=== PATIENT | female | born 1945 | race Caucasian/White ===

== ENCOUNTER → 2017-10-25 09:40 | Outpatient (POV) | payer MEDICARE, BC, SELFPAY | PROVIDERS: Visit Provider Otolaryngology | DX: Z00.00 Encounter for general adult medical examination without abnormal findings (principal) ==

== ENCOUNTER → 2018-12-12 09:42 | Outpatient (CLI) | payer MEDICARE, SELFPAY ==
--- NOTE | 2018-12-12 09:47 | MM_ITS ---
MM Dig screening mamm BI w/CAD CAD Screening COMPARISON: Digital mammograms with CAD 04/08/2015 INDICATION: There is no personal or family history of breast cancer there has been a previous cyst aspiration left breast. TECHNIQUE: Standard CC and MLO images were obtained. R2 CAD reviewed. FINDINGS: Prominent diffuse fibroglandular densities are seen throughout both breast and the findings are bilateral and symmetrical. There is no new or suspicious lesion in either breast and there are no suspicious microcalcifications. There are stable small nodes in both axilla. IMPRESSION: Moderate diffuse breast density with no suspicious lesion seen BI-RADS Category: 1 Negative RECOMMENDED FOLLOW-UP: 1YR - 1 YEAR FOLLOW-UP (A letter has been sent to the patient regarding results of the study.)
== END ==
PROVIDERS: PCP Family Medicine; Visit Provider Nurse Practitioner Family
DX: Z12.31 Encounter for screening mammogram for malignant neoplasm of breast (principal)
CPT/HCPCS: 77067

== ENCOUNTER → 2019-04-17 09:07 | Outpatient (CLI) | payer MEDICARE, SELFPAY ==
[2019-04-17 09:46] LABS: Lactic Acid 0.8 mmol/L (0.4-2.0)
[2019-04-17 10:30] LABS: Alanine Aminotransferase 35 U/L (12-78); Albumin Level 3.8 gm/dL (3.4-5.0); Albumin/Globulin Ratio 1.2 (1.1-1.8); Alkaline Phosphatase 107 U/L (46-116); Anion Gap 10.8 mEq/L (5-15); Aspartate Amino Transferase 25 U/L (15-37); Bilirubin,Total 0.5 mg/dL (0.2-1.0); Blood Urea Nitrogen 16 mg/dL (7-18); Calcium 9.4 mg/dL (8.5-10.1); Carbon Dioxide 32 mmol/L (21.0-32.0); Chloride 103 mmol/L (98-107); Creatinine,Serum 0.86 mg/dL (0.55-1.02); Estimated Glomerular Filt Rate 65 ml/min (>60); GFR (African American) 78 ML/MIN (>60); Globulin 3.2 gm/dl (1.3-3.2); Glucose 130 mg/dL (74-106); Potassium 3.8 mmoL/L (3.5-5.1); Sodium 142 mmol/L (136-145); Troponin I < 0.02 ng/ml (0.00-0.06)
[2019-04-17 10:56] LABS: C-Reactive Protein < 0.2 mg/dL (0.0-0.9)
[2019-04-17 12:47] LABS: Hemoglobin A1C 6.3 % (0.0-7.0)
== END ==
PROVIDERS: Visit Provider Nurse Practitioner Family
DX: E11.9 Type 2 diabetes mellitus without complications (principal); Z79.84 Long term (current) use of oral hypoglycemic drugs; R07.89 Other chest pain; T38.3X5A Adverse effect of insulin and oral hypoglycemic [antidiabetic] drugs, initial encounter
CPT/HCPCS: 36415; 80053; 83036; 83605; 84484; 86140

== ENCOUNTER → 2020-03-19 11:35 | Outpatient (CLI) | payer MEDICARE, SELFPAY ==
--- NOTE | 2020-03-19 11:39 | XR_ITS ---
PROCEDURE: XR CHEST 2V CLINICAL HISTORY: COUGH COMPARISON: No exams were available for comparison FINDINGS: The cardiomediastinal silhouette and pulmonary vascularity are within normal limits. The lungs are clear without infiltrates, suspicious nodules, or pleural effusions. No acute bony abnormalities. IMPRESSION: No acute findings. Dictated b Giovani Foley MD 03/19/2020 13:41 Giovani Foley MD in [place] 03/19/2020 13:41
== END ==
PROVIDERS: PCP Nurse Practitioner Family; Visit Provider Nurse Practitioner Family
DX: R05 Cough (principal)
CPT/HCPCS: 71046

== ENCOUNTER → 2021-06-02 09:17 | Outpatient (CLI) | payer MEDICARE, SELFPAY ==
--- NOTE | 2021-06-02 09:20 | CA_ITS ---
APPROVED REPORT High [employer] Teacher: Jania Whyte RVT Laterality: Bilateral Study Quality: Good Indications: DIZZINESS Risk Factors Hypertension: Hyperlipidemia Doppler Spectral Velocity Analysis ECA (R) 100.50/9.60 cm/s ECA (L) 95.20/6.40 cm/s dICA (R) 121.90/24.60 cm/s dICA (L) 80.20/22.50 cm/s Elijah (R) 115.50/25.70 cm/s Elijah (L) 77.00/19.20 cm/s pICA (R) 75.90/18.20 cm/s pICA (L) 74.90/11.80 cm/s dCCA (R) 75.90/8.60 cm/s dCCA (L) 82.30/11.80 cm/s pCCA (R) 87.70/11.80 cm/s pCCA (L) 100.50/15.00 cm/s Vert (R) 44.90/9.60 cm/s Vert (L) 63.10/8.60 cm/s ICA/CCA 1.61 ICA/CCA 0.97 Findings Study suggests less than 20% stenosis of the right internal cartoid artery. Study suggests less than 20% stenosis of the left internal cartoid artery. Antegrade flow seen bilateral vertebral arteries. Left thyroid nodule seen. Conclusion Study suggests less than 20% stenosis of the right internal cartoid artery. Study suggests less than 20% stenosis of the left internal cartoid artery. Antegrade flow seen bilateral vertebral arteries. No plaque visualized. Electronically signed by : Jossie Ness MD 06/02/2021 16:12:35
== END ==
PROVIDERS: PCP Nurse Practitioner Family; Visit Provider Nurse Practitioner Family
DX: R42 Dizziness and giddiness (principal)
CPT/HCPCS: 93880

== ENCOUNTER → 2021-06-12 06:18 | Outpatient (CLI) | payer MEDICARE, SELFPAY ==
--- NOTE | 2021-06-12 | CA_ITS ---
APPROVED REPORT Exam: Exercise Treadmill Technologist: Olya Jamison, Ht: 5 ft 3 in Wt: 179 lbs BSA: 1.84 m2 HR: 70 bpm BP: 188/86 mmHg Medical History Medications: Metoprolol Tartrate,,,,, Atorvastatin,,,,, Norvasc,,,,, Losartan-HCTZ,,,,, Stress Test Details Test: Matt HR Resting HR: 75 bpm Max Heart Rate (APMHR): 146.109312 bpm Max HR Achieved: 128 bpm Target HR (85% APMHR): 124.915060 bpm % of APMHR: 87.67 Recovery HR: 86 bpm BP Resting BP: 178/76 mmHg Max BP: 202/98 mmHg Recovery BP: 190.0/75.0 mmHg ECG Resting ECG: NSR, PRWP Anteriorly/old Ant HI Clinical Reason for Termination: Dyspnea Exercise duration: 06:00 min Highest Stage Achieved: Exercise capacity: 7.0 METs Stress ECG Conclusion Exercised 6:00 Minutes Max HR: 128 % of PM: 102 Max BP: 202/98 MET's: 7.0 Test stopped due to: SOA Symptoms: no CP. (+) SOA Arrhythmias/Ectopy: None in stress. PVC Bigeminy in early recovery ST-T Changes: <1.5mm ST Segment changes Conclusion: Negative stress. Electronically signed by : London Bundy MD 06/12/2021 13:16:13
--- NOTE | 2021-06-12 06:19 | CA_ITS ---
APPROVED REPORT EXAM: Comprehensive 2D, Doppler, and color-flow Echocardiogram Signing Agent: Selina Lam RT(R) Ht: 5 ft 3 in Wt: 179lbs BSA: 1.84 BP: 158/88 mmHg Indications: CP, HTN, SOB, family history HD, Abn EKG 2D Dimensions LVOT 1.78 cm (M/F) 1.5-2.5 LA Volume 16.40 mL LA Volume Index 8.91 mL/m2 (M/F) 16-34 M-Mode Dimensions RVDd 2.70 cm (0.9-2.6) LA Diam 2.91 cm (1.9-4.0) LVDd 4.67 cm (3.5-5.7) Ao Diam 2.54 cm (2.0-3.7) LVDs 3.34 cm (3.5-5.7) IVSd 0.93 cm (0.6-1.1) PWd 0.97 cm (0.6-1.1) EF (Teich) 55.00% FS 28.50% EDV (Teich) 100.80 mL ESV (Teich) 45.40 mL LV Diastology E Decel Time 220.00 (160-240 msec) E/A Ratio 0.7 MED E' 6.20 (< 7 cm/sec) E'/MED E' Ratio 12.11 (>14) LAT E' 6.30 (<10 cm/sec) E/LAT E' Ratio 11.92 (>14) Mitral Valve MV E Max Nayan. 75.00 (40-130 cm/s) MV A Velocity 112.00 (40-130 cm/s) E/A Ratio 0.67 MV Decel. Time 220.00 (160-240 ms) MV PHT 64.00 ms Left Ventricle Left atrium is mildly enlarged, left ventricle is normal size, mild concentric left ventricular hypertrophy, visually estimated ejection fraction 55% with no regional wall motion abnormality, grade 1 diastolic dysfunction seen without tissue Doppler evidence of raise left atrial pressure. Right Ventricle Right atrium and right ventricle are normal size and contractility. Aortic Valve Aortic valve is minimally thickened and fibrosed, there is no aortic stenosis or aortic insufficiency. Mitral Valve Mitral valve leaflets are minimally thickened, there is no mitral stenosis, there is trace mitral regurgitation. Tricuspid Valve Tricuspid valve grossly normal, there is trace tricuspid regurgitation, tricuspid regurgitation jet velocity is inadequate for calculation of the right ventricular systolic pressure. Pulmonic Valve Pulmonic valve is poorly visualized. Great Vessels Aortic root is normal size. Inferior vena cava is normal size with normal inspiratory collapse. Pericardium Trivial pericardial effusion noted. Conclusion 1. Mildly enlarged left atrium, normal left ventricular size, visually estimated ejection fraction 55% with no regional wall motion abnormality, grade 1 diastolic dysfunction seen without tissue Doppler evidence of raise left atrial pressure. 2. Trace mitral and tricuspid regurgitation. 3. Trivial pericardial effusion noted. 4. Inferior vena cava is normal size with normal inspiratory collapse. Electronically signed by : London Bundy MD 06/12/2021 13:56:50
--- NOTE | 2021-06-12 06:19 | NM_ITS ---
APPROVED REPORT Exam: Nuclear Stress Test Indication: Chest pain, SOB, Fatigue, HTN, High cholesterol, Family history Patient Location: Outpatient Stress Tech: Olya Jamison [place] Tech:Elizabeth Meredith, ARRT, RT (R)(N) Ht: 5 ft 3 in Wt: 178 lbs Bra Size: 38D HR: 70 bpm BP: 188/86 mmHg BSA: 1.84 m2 BMI: 31.5 History: Chest pain, SOB, Fatigue, HTN, High cholesterol, Family history Procedure: Patient exercised on Matt protocol 6:00 minutes and sec, resting heart rate 70 bpm, resting blood pressure 188/86 mmHg, with exercise maximum heart rate achived was 128 bpm which is 102 % of the maximum predicted heart rate and blood pressure was 202/98 mmHg. Test was stopped due to SOA. Patient denied any complaint of chest pain. Patient has Adequate exercise capacity, achieved 7.0 METs of workload on treadmill, the blood pressure response to exercise was Hypertensive. Electrocardiogram Resting electrocardiogram shows sinus rhythm, with exercise there is less than 1.[address] segment depression noted from the baseline EKG. The EKG portion of the exercise Myoview is negative for ischemia. Cardiac Stress and Resting SPECT Images: Cardiac Stress and Resting SPECT images were obtained using technetium 99m Myoview 31.3 mCi stress and 10.98 mCi at rest. Gated SPECT for analysis of segmental wall motion, and calculation of the ejection fraction also done. Prone images were also obtained. Cardiac stress and resting SPECT images show reversible ischemia involving the anterior apical and anteroseptal wall, computer derived ejection fraction is over 65% with no regional wall motion abnormality, right ventricle is normal size and contractility. Conclusion: 1. The EKG portion of the exercise Myoview is negative for ischemia, patient has adequate exercise capacity achieved 7 METS of workload on treadmill, the blood pressure response to exercise was hypertensive, there was no exercise-induced chest discomfort. 2. Scintigraphic evidence of reversible ischemia involving the anterior apical and anteroseptal wall, computer derived ejection fraction was 65% with no regional wall motion abnormality, right ventricle is normal size and contractility. 3. Abnormal exercise Myoview study. Electronically signed by : London Bundy MD 06/12/2021 13:19:19
--- NOTE | 2021-06-12 08:29 | HMH.ITSHM ---
Current Home Medications as stated by this patient Sona Fraser or help desk representative. []METOPROLOL ATORVASTATIN AMLODIPINE LOSARTAN
== END ==
PROVIDERS: PCP Nurse Practitioner Family; Visit Provider Nurse Practitioner Family
DX: R06.00 Dyspnea, unspecified (principal)
CPT/HCPCS: 78452; 93017; 93306; A9502

== ENCOUNTER → 2021-06-19 11:51 | Outpatient (CLI) | payer MEDICARE, SELFPAY ==
[2021-06-19 12:18] LABS: Basophils # 0.1 K/mm3 (0-0.2); Basophils % 1.3 % (0.1-2.0); Eosinophils % 0.1 % (0.1-12.0); Hematocrit 41.3 % (37.0-47.0); Hemoglobin 14.4 g/dL (12.2-16.2); Lymphocytes # 1.6 K/mm3 (0.7-4.5); Lymphocytes % 29.7 % (10-50); Mean Corpuscular HGB Conc 34.9 g/dL (31.8-35.4); Mean Corpuscular Hemoglobin 32.3 pg (27.0-31.2); Mean Corpuscular Volume 92.7 fl (81-99); Mean Platelet Volume 8.8 fl (7.4-10.4); Monocytes # 0.5 K/mm3 (0.1-1.0); Monocytes % 8.5 % (1.7-9.3); Neutrophils # 3.3 K/mm3 (1.8-7.8); Neutrophils % 60.3 % (37.0-80.0); Platelet Count 249 K/mm3 (142-424); Red Blood Count 4.46 M/mm3 (4.20-5.40); Red Cell Distribution Width 12.5 % (11.5-17.5); White Blood Count 5.4 K/mm3 (4.8-10.8)
[2021-06-19 12:39] LABS: Anion Gap 10.9 mEq/L (5-15); Blood Urea Nitrogen 16 mg/dl (7-17); Calcium 9.2 mg/dl (8.4-10.2); Carbon Dioxide 32 mmol/L (22.0-30.0); Chloride 98 mmol/L (98-107); Estimated Glomerular Filt Rate 82 ml/min (>60); GFR (African American) 99 ML/MIN (>60); Glucose 322 mg/dl (74-100); Potassium 3.9 mmoL/L (3.5-5.1); Sodium 137 mmol/L (136-145)
== END ==
PROVIDERS: Visit Provider Nurse Practitioner Family
DX: E78.2 Mixed hyperlipidemia (principal); I10 Essential (primary) hypertension; I20.8 Other forms of angina pectoris; I63.9 Cerebral infarction, unspecified; R06.00 Dyspnea, unspecified; R73.03 Prediabetes; R94.31 Abnormal electrocardiogram [ECG] [EKG]; R94.39 Abnormal result of other cardiovascular function study; Z82.49 Family history of ischemic heart disease and other diseases of the circulatory system; Z01.812 Encounter for preprocedural laboratory examination; Z11.52 Encounter for screening for COVID-19
CPT/HCPCS: 36415; 80048; 85025; C9803; U0003; U0005

== ENCOUNTER 2021-06-22 09:10 | Day surgery (SDC) | payer MEDICARE, SELFPAY ==
[2021-06-22] VITALS (12 sets, daily range): BP systolic 88–197; BP diastolic 48–100; PULSE 43–85; RESP 18–19; O2SAT 91–100; BMI 31.6
--- NOTE | 2021-06-22 07:07 | IR_ITS ---
APPROVED REPORT Patient Location: Outpatient PROCEDURES Left heart catheterization Left ventriculogram Selective coronary angiogram Drug-eluting stent deployment to the proximal mid LAD INDICATION Coronary artery disease, High risk abnormal Myoview, Angina pectoris Informed consent was obtained prior to the procedure. COMPLICATIONS NONE Estimated Blood Loss: LESS THAN 10 ML TECHNIQUE One percent lidocaine used to anesthetize the right anterior aspect of the wrist. The right radial artery was accessed via the Seldinger technique. A 6 [place] sheath was placed in the right radial artery. 2.5 mg of verapamil, 800 mcg of nitroglycerin, 1mg Lidocaine and 5000 U Heparin were given through the arterial sheath. The [employer] catheter was also used to perform left heart catheterization, left ventriculogram and selective coronary angiogram. At the end the diagnostic angiogram therapeutic heparin was administered giving a therapeutic ACT and the same catheter was placed in the left main artery followed by a Choice PT extra-support wire. 3 mm x 15 mm resolute [place] stent was deployed at 20 asya reducing the severe stenosis to less than 10%. KEI-3 flow was present before and after the procedure. There was angiographic jailing of the first diagonal artery however KEI-3 flow was present down the diagonal artery. At the end the procedure the apparatus was removed the sheath was removed good hemostasis which using TR banding patient was transferred to the postop putting her stable condition ANGIOGRAPHIC RESULTS The left main artery Normal The left anterior descending artery Is mild 10% luminal irregularities followed by a 70 to 80% concentric stenosis immediately adjacent to a diagonal artery. Distally there are mild 10% luminal irregularities The circumflex artery Nondominant normal The right coronary artery Dominant and has a mild 20 to 30% stenosis The FLORES ventriculogram reveals Normal 65% The left ventricular end-diastolic pressure 10 mmHg IMPRESSION Severe proximal LAD disease Successful drug-eluting stent to the proximal ID severe disease reduced to 0% with 1 drug-eluting stent Mild disease in the right coronary Normal ejection fraction Normal left ventricular end-diastolic pressure PLAN 1. Dual antiplatelet therapy 2. Cardiac rehabilitation 3. Avoidance of tobacco products 4. Risk factor modification 5. LDL less than 55 Electronically signed by : Kenrick Billingsley MD 06/22/2021 12:31:42
[2021-06-22 13:27] LABS: CATHL Activated Clotting Time 323 SEC (74-125)
--- NOTE | 2021-06-22 15:30 | HMH.PHACLD ---
Sona Fraser has received discharge medication counseling on the following medications: PATIENT IS CURRENTLY TAKING ATORVASTATIN 20 MG HS, LOSARTAN-HCTZ 100/25 MG DAILY, ASPIRIN DR 81 MG DAILY, AND METOPROLOL 50 MG BID. STARTING BRILINTA 90 MG BID.
== END 2021-06-22 15:33 | disposition home or self-care (01) ==
LOC: CATHLAB 09:12
PROVIDERS: PCP Nurse Practitioner Family; Visit Provider Internal Medicine
DX: E78.2 Mixed hyperlipidemia (principal); I10 Essential (primary) hypertension; R06.00 Dyspnea, unspecified; R73.03 Prediabetes; R94.31 Abnormal electrocardiogram [ECG] [EKG]; R94.39 Abnormal result of other cardiovascular function study; Z82.49 Family history of ischemic heart disease and other diseases of the circulatory system; I25.118 Atherosclerotic heart disease of native coronary artery with other forms of angina pectoris
CPT/HCPCS: 85347; 92928; 93458; 99152; C1725; C1769; C1876; C9600; J1644; Q9967

== ENCOUNTER 2021-07-06 09:50 | Outpatient (RCR) | payer MEDICARE, SELFPAY | END 2021-11-03 14:19 | disposition home or self-care (01) | LOC: PT 09:50 | PROVIDERS: Visit Provider Internal Medicine | DX: I25.10 Atherosclerotic heart disease of native coronary artery without angina pectoris (principal); Z95.5 Presence of coronary angioplasty implant and graft | CPT/HCPCS: 93798 ==

== ENCOUNTER → 2021-08-05 10:02 | Outpatient (CLI) | payer MEDICARE, SELFPAY ==
[2021-08-05 11:27] LABS: Chloride 102 mmol/L (98-107); Potassium 4.2 mmoL/L (3.5-5.1); Sodium 139 mmol/L (136-145)
[2021-08-05 11:30] LABS: Anion Gap 13.2 mEq/L (5-15); Blood Urea Nitrogen 16 mg/dl (7-17); Carbon Dioxide 28 mmol/L (22.0-30.0); Estimated Glomerular Filt Rate 61 ml/min (>60); GFR (African American) 74 ML/MIN (>60)
[2021-08-05 11:31] LABS: Calcium 9.3 mg/dl (8.4-10.2); Glucose 184 mg/dl (74-100)
== END ==
PROVIDERS: Visit Provider Urology
DX: E78.2 Mixed hyperlipidemia (principal); I10 Essential (primary) hypertension; R06.00 Dyspnea, unspecified; R73.03 Prediabetes; R94.31 Abnormal electrocardiogram [ECG] [EKG]; Z82.49 Family history of ischemic heart disease and other diseases of the circulatory system
CPT/HCPCS: 36415; 80048

== ENCOUNTER → 2022-09-13 09:31 | Outpatient (CLI) | payer MEDICARE, SELFPAY ==
[2022-09-13 10:24] LABS: Basophils # 0.1 K/mm3 (0-0.2); Basophils % 0.8 % (0.1-2.0); Hematocrit 41.9 % (37.0-47.0); Lymphocytes # 1.8 K/mm3 (0.7-4.5); Lymphocytes % 30.7 % (10-50); Mean Corpuscular HGB Conc 33.4 g/dL (31.8-35.4); Mean Corpuscular Hemoglobin 29.8 pg (27.0-31.2); Mean Corpuscular Volume 89.2 fl (81-99); Mean Platelet Volume 8.4 fl (7.4-10.4); Monocytes # 0.5 K/mm3 (0.1-1.0); Monocytes % 8.6 % (1.7-9.3); Neutrophils # 3.5 K/mm3 (1.8-7.8); Neutrophils % 59.9 % (37.0-80.0); Platelet Count 267 K/mm3 (142-424); Red Cell Distribution Width 13.2 % (11.5-17.5); White Blood Count 5.8 K/mm3 (4.8-10.8)
[2022-09-13 11:25] LABS: Chloride 104 mmol/L (98-107); Potassium 3.9 mmoL/L (3.5-5.1); Sodium 141 mmol/L (136-145)
[2022-09-13 11:28] LABS: Alanine Aminotransferase 24 U/L (12-78); Albumin Level 4.2 g/dl (3.5-5.0); Alkaline Phosphatase 127 U/L (38-126); Anion Gap 9.9 mEq/L (5-15); Aspartate Amino Transferase 31 U/L (14-36); Bilirubin,Direct 0.2 mg/dl (0.0-0.4); Bilirubin,Indirect 0.4 mg/dL (0.0-0.9); Bilirubin,Total 0.6 mg/dl (0.2-1.3); Bilirubin,Unconjugated 0.4 mg/dL (0.0-1.1); Blood Urea Nitrogen 18 mg/dl (7-17); Calcium 9.7 mg/dl (8.4-10.2); Carbon Dioxide 31 mmol/L (22.0-30.0); Cholesterol 169 mg/dl (140-200); Estimated Glomerular Filt Rate 70 ml/min (>60); GFR (African American) 85 ML/MIN (>60); Glucose 171 mg/dl (74-100); Total Protein,Serum 7.1 g/dl (6.3-8.2); Triglycerides 180 mg/dl (30-150); VLDL Cholesterol 36 mg/dL (0-40)
[2022-09-13 11:29] LABS: Chol/HDL Ratio 3.8 (1-3.5); HDL Cholesterol 44 mg/dl (40-60); Magnesium 1.7 mg/dl (1.6-2.3)
[2022-09-13 11:40] LABS: Direct LDL Cholesterol 87.81 mg/dL (100-129)
[2022-09-13 11:46] LABS: Free T4 (Free Thyroxine) 0.93 ng/dl (0.78-2.19)
[2022-09-13 12:00] LABS: Thyroid Stimulating Hormone 1.26 uIU/mL (0.465-4.68)
== END ==
PROVIDERS: PCP Family Medicine; Visit Provider Physician Assistant
DX: E78.2 Mixed hyperlipidemia (principal); I10 Essential (primary) hypertension; I25.10 Atherosclerotic heart disease of native coronary artery without angina pectoris; R94.31 Abnormal electrocardiogram [ECG] [EKG]
CPT/HCPCS: 36415; 80048; 80061; 80076; 83735; 84439; 84443; 85025

== ENCOUNTER 2023-03-01 10:00 | Outpatient (RCR) | payer MEDICARE, SELFPAY | END 2023-03-01 10:05 | disposition home or self-care (01) | LOC: PT 10:00 | PROVIDERS: PCP Family Medicine; Visit Provider Orthopaedic Surgery Orthopaedic Trauma | DX: S97.81XA Crushing injury of right foot, initial encounter (principal); S82.891A Other fracture of right lower leg, initial encounter for closed fracture; V89.2XXA Person injured in unspecified motor-vehicle accident, traffic, initial encounter | CPT/HCPCS: 97010; 97014; 97110; 97112; 97116; 97140; 97163; 97164; 97530; 97760; G0283 ==

== ENCOUNTER → 2023-03-28 10:26 | Outpatient (CLI) | payer MEDICARE, SELFPAY ==
[2023-03-28 11:08] LABS: Basophils % 0.6 % (0.1-2.0); Eosinophils % 0.3 % (0.1-12.0); Hematocrit 44.2 % (37.0-47.0); Hemoglobin 14.7 g/dL (12.2-16.2); Lymphocytes # 1.8 K/mm3 (0.7-4.5); Lymphocytes % 32.4 % (10-50); Mean Corpuscular HGB Conc 33.2 g/dL (31.8-35.4); Mean Corpuscular Hemoglobin 30.8 pg (27.0-31.2); Mean Corpuscular Volume 92.7 fl (81-99); Mean Platelet Volume 8.6 fl (7.4-10.4); Monocytes # 0.5 K/mm3 (0.1-1.0); Monocytes % 8.5 % (1.7-9.3); Neutrophils # 3.3 K/mm3 (1.8-7.8); Neutrophils % 58.3 % (37.0-80.0); Platelet Count 214 K/mm3 (142-424); Red Blood Count 4.77 M/mm3 (4.20-5.40); Red Cell Distribution Width 12.6 % (11.5-17.5); White Blood Count 5.6 K/mm3 (4.8-10.8)
[2023-03-28 12:05] LABS: Chloride 101 mmol/L (98-107); Potassium 3.9 mmoL/L (3.5-5.1); Sodium 141 mmol/L (136-145)
[2023-03-28 12:07] LABS: Alanine Aminotransferase 30 U/L (12-78); Aspartate Amino Transferase 33 U/L (14-36); Bilirubin,Unconjugated 0.5 mg/dL (0.0-1.1); Blood Urea Nitrogen 21 mg/dl (7-17); Estimated Glomerular Filt Rate 54 ml/min (>60); GFR (African American) 65 ML/MIN (>60)
[2023-03-28 12:08] LABS: Alkaline Phosphatase 130 U/L (38-126); Anion Gap 13.9 mEq/L (5-15); Bilirubin,Direct 0.1 mg/dl (0.0-0.4); Bilirubin,Indirect 0.5 mg/dL (0.0-0.9); Bilirubin,Total 0.6 mg/dl (0.2-1.3); Calcium 10.2 mg/dl (8.4-10.2); Carbon Dioxide 30 mmol/L (22.0-30.0); Chol/HDL Ratio 4.4 (1-3.5); Cholesterol 171 mg/dl (140-200); Glucose 176 mg/dl (74-100); HDL Cholesterol 39 mg/dl (40-60); Triglycerides 207 mg/dl (30-150); VLDL Cholesterol 41 mg/dL (0-40)
[2023-03-28 12:19] LABS: Direct LDL Cholesterol 88.33 mg/dL (100-129)
== END ==
PROVIDERS: PCP Nurse Practitioner Family; Visit Provider Physician Assistant
DX: E78.5 Hyperlipidemia, unspecified (principal); I10 Essential (primary) hypertension; I25.10 Atherosclerotic heart disease of native coronary artery without angina pectoris; R06.00 Dyspnea, unspecified; Z79.899 Other long term (current) drug therapy
CPT/HCPCS: 36415; 80048; 80061; 80076; 85025

== ENCOUNTER 2023-10-13 07:51 | Outpatient (CLI) | payer MEDICARE, SELFPAY ==
--- NOTE | 2023-10-13 | CA_ITS ---
APPROVED REPORT Exam: Pharmacologic Technologist: Amelia Metcalf, Ht: 5 ft 3 in Wt: 172 lbs BSA: 1.81 m2 HR: 53 bpm BP: 165/64 mmHg Rhythm: Sinus bradycardia, first-degree AV block, nonspecific T wave changes Indications: Fatigue Medical History Medical History: HTN, Hyperlipidemia Medications: Aspirin,,,,, Metoprolol Tartrate,,,,, Atorvastatin,,,,, Losartan HCT,,,,, Allergies: No known drug allergies Cardiac Risk Factors: HTN, Hyperlipidemia Stress Test Details Test: LEXISCAN HR Resting HR: 65 bpm Max Heart Rate (APMHR): 144 bpm Max HR Achieved: 87 bpm Target HR (85% APMHR): 122 bpm % of APMHR: 60 Recovery HR: 75 bpm BP Resting BP: 165/64 mmHg Max BP: 165/64 mmHg Recovery BP: 161.0/67.0 mmHg ECG Resting ECG: Sinus bradycardia, first-degree AV block, nonspecific T wave changes Stress ECG: No significant ST changes Arrhythmia: None Clinical Exercise duration: 04:01 min Highest Stage Achieved: Stress ECG Conclusion PT HAD CHEST TIGHTNESS/HEAVINESS, MILD HEAD DISCOMFORT, AND SOA NO SIGNIFICANT ST CHANGES CONCLUSION: UNREMARKABLE LEXISCAN STRESS MYOVIEW IMAGES REPORTED SEPARATELY Test Summary REST 01:43 . . 65 . 165/ 64 . . Stage 1 01:00 . . 79 . . . . Stage 2 01:00 . . 83 . 158/ 62 . . Stage 3 01:00 . . 71 . 133/ 58 . . Stage 4 01:00 . . 80 . 148/ 61 . . Stage 4 01:01 . . 80 . 148/ 61 . Stop exercise at 04:01 RECOVERY 01:00 . . 85 . . . . RECOVERY 02:00 . . 80 . . . . RECOVERY 03:00 . . 75 . 165/ 64 . . RECOVERY 04:00 . . 77 . 165/ 64 . . RECOVERY 04:43 . . 75 . 161/ 67 . . Electronically signed by : Mariola Pierre MD 10/16/2023 01:01:52
--- NOTE | 2023-10-13 07:51 | NM_ITS ---
APPROVED REPORT Exam: Nuclear Stress Test Indication: chest pain..fatigue Patient Location: Outpatient Stress Tech: Amelia Metcalf [place] Tech:RADHA Fernandez RT(R)(N) Ht: 5 ft 3 in Wt: 169 lbs Bra Size: 38d HR: 65 bpm BP: 165/64 mmHg BSA: 1.80 m2 TID: 0.98 BMI: 29.9 History: chest pain..fatigue Procedure: Patient received 0.4 mg of intravenous Lexiscan, resting heart rate 65 bpm, resting blood pressure 165/64 mmHg, with Lexiscan maximum heart rate achieved was 87 bpm which is 85 % of the maximum predicted heart rate and blood pressure was 165/64 mmHg. With Lexiscan, patient denied any complaint of chest pain. The patient was not able to lay on her abdomen for prone images. Cardiac Stress and Resting SPECT Images: Cardiac Stress and Resting SPECT images were obtained using technetium 99m Myoview 32.4 mCi stress and 9.97 mCi at rest. The patient could not lie on her abdomen. Therefore, prone stress imaging could not be performed. This may affect the diagnostic interpretation of the study findings. Resting and stress imaging in supine positions demonstrate no evidence of fixed or reversible perfusion defects. Gated imaging demonstrates normal global and regional LV systolic function. LVEF is calculated at 71%. Conclusion: No evidence of fixed or reversible perfusion defects. Gated imaging demonstrates normal global and regional LV systolic function. LVEF is calculated at 71%. Electronically signed by : Mariola Pierre MD 10/16/2023 01:03:57
--- NOTE | 2023-10-13 07:52 | CA_ITS ---
APPROVED REPORT EXAM: Comprehensive 2D, Doppler, and color-flow Echocardiogram Child Study Team Director: Jania Whyte RVT Ht: 5 ft 3 in Wt: 172lbs BSA: 1.81 BP: 156/65 mmHg Indications: CAD,DYSPENA,ABN EKG,HTN,HLD,FATIGUE 2D Dimensions LA Volume 31.10 mL LA Volume Index 17.09 mL/m2 (M/F) 16-34 M-Mode Dimensions RVDd 2.57 cm (0.9-2.6) LA Diam 3.49 cm (1.9-4.0) LVDd 4.14 cm (3.5-5.7) LVDs 2.29 cm (3.5-5.7) IVSd 1.27 cm (0.6-1.1) PWd 0.70 cm (0.6-1.1) EF (Teich) 76.40% FS 44.70% EDV (Teich) 75.90 mL TAPSE 2.40 (<1.7) ESV (Teich) 17.90 mL LV Diastology E Decel Time 243 (160-240 msec) E/A Ratio 0.7 Aortic Valve ABEBA Index 1.25 cm2/m2 AoV Peak Nayan. 131.0 (50-130 cm/s) AO Peak GR. 6.90 mmHg AO Mean GR. 3.60 (<5 mmHg) AO VTI 29.7 (18-25 cm) ABEBA (VTI) 2.33 (2.5-4.5 cm2) Mitral Valve MV E Max Nayan. 82.0 (40-130 cm/s) MV A Velocity 125.0 (40-130 cm/s) E/A Ratio 0.65 MV PHT 71.0 ms Pulmonary Valve PV Peak Velocity 107.0 (50-150 cm/s) Left Ventricle The left ventricle is normal size. The left ventricular systolic function is normal. The left ventricular ejection fraction is within the normal range. There is increased LV wall thickness. There is normal LV segmental wall motion. The left ventricular diastolic function is normal. LVEF is 55%. Right Ventricle Right ventricle is mildly dilated. The right ventricular systolic function is normal. Atria The left atrium size is normal. The right atrium size is normal. There is no Doppler evidence of interatrial shunt. Aortic Valve The aortic valve is mildly thickened. There is no aortic valvular stenosis. Trace aortic regurgitation. Mitral Valve The mitral valve is mildly thickened. No evidence of mitral valve stenosis. Trace mitral regurgitation. Tricuspid Valve The tricuspid valve leaflets are thin and pliable. Trace tricuspid regurgitation. There is insufficient TR jet to estimate RVSP. Pulmonic Valve The pulmonary valve is normal in structure. Mild pulmonic regurgitation. Great Vessels The aortic root is normal in size. The ascending aorta is normal in size. IVC is normal in size and collapses >50% with inspiration. Pericardium There is no pericardial effusion. Other Information Study Quality: Fair Conclusion Normal biventricular systolic function. Mild RV dilation. Mild PI. Electronically signed by : Mariola Pierre MD 10/16/2023 20:35:00
[2023-10-13] MEDS: REGADENOSON 0.4MG/5ML SYRINGE 0.400000000000000022 MG IV (10:35)
[2023-10-13] MEDS: SODIUM CHLORIDE 0.9% 10ML SYR (RAD ONLY) 10 ML IV ×2 (10:35)
[2023-10-13] MEDS: ISOTOPE MYOVIEW (PER STUDY) 1 DOSE IV (10:35)
== END 2023-10-13 23:59 ==
LOC: RAD 07:51
PROVIDERS: PCP Nurse Practitioner Family; Visit Provider Physician Assistant
DX: R06.00 Dyspnea, unspecified (principal); R94.31 Abnormal electrocardiogram [ECG] [EKG]; I11.9 Hypertensive heart disease without heart failure; I25.10 Atherosclerotic heart disease of native coronary artery without angina pectoris; E78.5 Hyperlipidemia, unspecified; R53.83 Other fatigue
CPT/HCPCS: 78452; 93017; 93018; 93306; A9502; J2785

== ENCOUNTER 2023-10-27 10:13 | Outpatient (CLI) | payer MEDICARE, SELFPAY ==
[2023-10-27 10:43] LABS: Basophils # 0.1 K/mm3 (0-0.2); Basophils % 1.2 % (0.1-2.0); Hematocrit 44.5 % (37.0-47.0); Hemoglobin 14.6 g/dL (12.2-16.2); Lymphocytes # 1.7 K/mm3 (0.7-4.5); Lymphocytes % 28.5 % (10-50); Mean Corpuscular HGB Conc 32.7 g/dL (31.8-35.4); Mean Corpuscular Hemoglobin 31.7 pg (27.0-31.2); Mean Corpuscular Volume 96.9 fl (81-99); Mean Platelet Volume 8.8 fl (7.4-10.4); Monocytes # 0.6 K/mm3 (0.1-1.0); Monocytes % 9.5 % (1.7-9.3); Neutrophils # 3.5 K/mm3 (1.8-7.8); Neutrophils % 60.8 % (37.0-80.0); Platelet Count 225 K/mm3 (142-424); Red Cell Distribution Width 12.6 % (11.5-17.5); White Blood Count 5.8 K/mm3 (4.8-10.8)
[2023-10-27 11:28] LABS: Hemoglobin A1C 7.7 % (4.0-6.0)
[2023-10-27 11:33] LABS: Chloride 101 mmol/L (98-107); Sodium 138 mmol/L (136-145)
[2023-10-27 11:34] LABS: Potassium 4.2 mmoL/L (3.5-5.1)
[2023-10-27 11:36] LABS: Alanine Aminotransferase 29 U/L (12-78); Albumin Level 4.3 g/dl (3.5-5.0); Alkaline Phosphatase 128 U/L (38-126); Anion Gap 8.2 mEq/L (5-15); Aspartate Amino Transferase 34 U/L (14-36); Bilirubin,Direct 0.1 mg/dl (0.0-0.4); Bilirubin,Indirect 0.6 mg/dL (0.0-0.9); Bilirubin,Total 0.7 mg/dl (0.2-1.3); Bilirubin,Unconjugated 0.6 mg/dL (0.0-1.1); Blood Urea Nitrogen 18 mg/dl (7-17); Calcium 9.9 mg/dl (8.4-10.2); Carbon Dioxide 33 mmol/L (22.0-30.0); Cholesterol 169 mg/dl (140-200); Estimated Glomerular Filt Rate 61 ml/min (>60); GFR (African American) 74 ML/MIN (>60); Glucose 170 mg/dl (74-100); Magnesium 1.7 mg/dl (1.6-2.3); Total Protein,Serum 6.8 g/dl (6.3-8.2); Triglycerides 174 mg/dl (30-150); VLDL Cholesterol 35 mg/dL (0-40)
[2023-10-27 11:37] LABS: Chol/HDL Ratio 4.7 (1-3.5); HDL Cholesterol 36 mg/dl (40-60)
[2023-10-27 11:51] LABS: Free T4 (Free Thyroxine) 1.25 ng/dl (0.78-2.19)
[2023-10-27 11:54] LABS: Direct LDL Cholesterol 86.59 mg/dL (100-129)
[2023-10-27 12:14] LABS: Thyroid Stimulating Hormone 1.31 uIU/mL (0.465-4.68)
== END 2023-10-27 23:59 ==
LOC: LAB 10:14
PROVIDERS: PCP Family Medicine; Visit Provider Physician Assistant
DX: I11.9 Hypertensive heart disease without heart failure (principal); I25.10 Atherosclerotic heart disease of native coronary artery without angina pectoris; E78.2 Mixed hyperlipidemia; R73.03 Prediabetes; R53.83 Other fatigue; R94.31 Abnormal electrocardiogram [ECG] [EKG]
CPT/HCPCS: 36415; 80048; 80061; 80076; 83036; 83735; 84439; 84443; 85025

== ENCOUNTER 2024-04-30 10:05 | Outpatient (CLI) | payer MEDICARE, SELFPAY ==
[2024-04-30 10:26] LABS: Basophils # 0.1 K/mm3 (0-0.2); Basophils % 1.2 % (0.1-2.0); Hematocrit 45.2 % (37.0-47.0); Hemoglobin 14.9 g/dL (12.2-16.2); Lymphocytes # 1.5 K/mm3 (0.7-4.5); Lymphocytes % 25.3 % (10-50); Mean Corpuscular HGB Conc 33.1 g/dL (31.8-35.4); Mean Corpuscular Hemoglobin 31.8 pg (27.0-31.2); Mean Corpuscular Volume 96.2 fl (81-99); Monocytes # 0.5 K/mm3 (0.1-1.0); Monocytes % 8.2 % (1.7-9.3); Neutrophils # 3.9 K/mm3 (1.8-7.8); Neutrophils % 65.3 % (37.0-80.0); Platelet Count 250 K/mm3 (142-424); Red Blood Count 4.69 M/mm3 (4.20-5.40); Red Cell Distribution Width 13.1 % (11.5-17.5)
[2024-04-30 11:49] LABS: Alanine Aminotransferase 34 U/L (12-78); Albumin Level 4.2 g/dl (3.5-5.0); Alkaline Phosphatase 118 U/L (38-126); Aspartate Amino Transferase 37 U/L (14-36); Bilirubin,Direct 0.2 mg/dl (0.0-0.4); Bilirubin,Indirect 0.7 mg/dL (0.0-0.9); Bilirubin,Total 0.9 mg/dl (0.2-1.3); Bilirubin,Unconjugated 0.7 mg/dL (0.0-1.1); Blood Urea Nitrogen 19 mg/dl (7-17); Calcium 9.9 mg/dl (8.4-10.2); Carbon Dioxide 33 mmol/L (22.0-30.0); Chloride 101 mmol/L (98-107); Chol/HDL Ratio 3.3 (1-3.5); Cholesterol 166 mg/dl (140-200); Estimated Glomerular Filt Rate 61 ml/min (>60); GFR (African American) 73 ML/MIN (>60); Glucose 207 mg/dl (74-100); HDL Cholesterol 50 mg/dl (40-60); Sodium 136 mmol/L (136-145); Total Protein,Serum 6.9 g/dl (6.3-8.2); Triglycerides 160 mg/dl (30-150); VLDL Cholesterol 32 mg/dL (0-40)
[2024-04-30 12:04] LABS: Direct LDL Cholesterol 82.53 mg/dL (100-129)
[2024-04-30 12:08] LABS: Free T4 (Free Thyroxine) 0.95 ng/dl (0.78-2.19)
[2024-04-30 12:21] LABS: Thyroid Stimulating Hormone 0.08 uIU/mL (0.465-4.68)
== END 2024-04-30 23:59 | disposition home or self-care (01) ==
LOC: LAB 10:06
PROVIDERS: PCP Family Medicine; Visit Provider Physician Assistant
DX: R53.83 Other fatigue (principal); E11.9 Type 2 diabetes mellitus without complications; I25.10 Atherosclerotic heart disease of native coronary artery without angina pectoris; E78.2 Mixed hyperlipidemia; I10 Essential (primary) hypertension; E78.5 Hyperlipidemia, unspecified
CPT/HCPCS: 36415; 80048; 80061; 80076; 84439; 84443; 85025

== ENCOUNTER 2024-05-09 07:55 | Outpatient (CLI) | payer MEDICARE, SELFPAY ==
--- NOTE | 2024-05-09 07:57 | US_ITS ---
FINAL REPORT TECHNIQUE: Ultrasound images of the abdomen were obtained. CLINICAL HISTORY: FLANK PAIN COMPARISON: None FINDINGS: The pancreas is obscured by bowel gas. There appeared to be areas of slight increased echogenicity in the liver, most likely focal fatty infiltration. The gallbladder contains sludge. The common duct is normal. The right kidney measures 9.6 cm in length and is normal in echogenicity without hydronephrosis. The left kidney measures 9 cm in length and is normal in echogenicity without hydronephrosis. The spleen is unremarkable. The aorta is normal in caliber. The vena cava is unremarkable. IMPRESSION: Gallbladder sludge with no evidence of biliary ductal dilatation. Probable focal fatty infiltration of the liver. Reviewed, Interpreted and Dictated by Jarred Lucas MD Transcribed by Fallon Guillaume Authenticated and . [facility]
== END 2024-05-09 23:59 | disposition home or self-care (01) ==
LOC: RAD 07:55
PROVIDERS: PCP Nurse Practitioner; Visit Provider Nurse Practitioner
DX: R10.9 Unspecified abdominal pain (principal)
CPT/HCPCS: 76700

== ENCOUNTER 2024-05-18 10:07 | Outpatient (CLI) | payer MEDICARE, SELFPAY ==
--- NOTE | 2024-05-18 10:12 | NM_ITS ---
FINAL REPORT CLINICAL HISTORY: CHOLECYSTITIS W/ CHOLELITHASIS 10:40 am 8.40 [facility] tc choletec 1.5 mcg of cck mild pain during cck COMPARISON: None FINDINGS: Sequential anterior projection images of the abdomen were obtained after the intravenous injection of 8.40 mCi technetium 99m Choletec. There is normal uptake of radiotracer by the liver. The bile ducts are visualized by 15 minutes. Gallbladder activity is seen by 30 minutes. Bowel activity is noted by 20 minutes. After 1 hour, 1.5 ?g of CCK was injected intravenously for calculation of gallbladder ejection fraction. The gallbladder ejection fraction is 93 %, which is within normal limits. IMPRESSION: No evidence of cystic duct or bile duct obstruction. Normal gallbladder ejection fraction of 93 %. Reviewed, Interpreted and Dictated by Mina Smallwood III, MD Transcribed by Xiao Wright Authenticated and [facility]
[2024-05-18] MEDS: SODIUM CHLORIDE 0.9% 10ML SYR (RAD ONLY) 10 ML IV (10:40)
[2024-05-18] MEDS: SINCALIDE 1.5 MCG in 0.9 % SODIUM CHLORIDE 50 ML 100 MCG IV (11:55)
[2024-05-18] MEDS: ISOTOPE CHOLETECH;1 DOSE (UP TO 15 MCI) IV (11:56)
== END 2024-05-18 23:59 | disposition home or self-care (01) ==
LOC: RAD 10:07
PROVIDERS: PCP Nurse Practitioner; Visit Provider Nurse Practitioner
DX: K80.10 Calculus of gallbladder with chronic cholecystitis without obstruction (principal)
CPT/HCPCS: 78227; A9537; J2805

== ENCOUNTER 2024-10-25 10:58 | Outpatient (CLI) | payer MEDICARE, SELFPAY ==
[2024-10-25 12:00] LABS: Basophils % 0.6 % (0.1-2.0); Hematocrit 42.7 % (37.0-47.0); Hemoglobin 14.8 g/dL (12.2-16.2); Lymphocytes # 1.5 K/mm3 (0.7-4.5); Mean Corpuscular HGB Conc 34.7 g/dL (31.8-35.4); Mean Corpuscular Hemoglobin 31.3 pg (27.0-31.2); Mean Corpuscular Volume 90.3 fl (81-99); Mean Platelet Volume 10.6 fl (7.4-10.4); Monocytes # 0.6 K/mm3 (0.1-1.0); Monocytes % 9.1 % (1.7-9.3); Neutrophils # 4.4 K/mm3 (1.8-7.8); Neutrophils % 67.1 % (37.0-80.0); Platelet Count 240 K/mm3 (142-424); Red Blood Count 4.73 M/mm3 (4.20-5.40); Red Cell Distribution Width 11.5 % (11.5-17.5); White Blood Count 6.5 K/mm3 (4.8-10.8)
[2024-10-25 12:03] LABS: Alanine Aminotransferase 34 U/L (12-78); Albumin Level 4.5 g/dl (3.5-5.0); Alkaline Phosphatase 103 U/L (38-126); Anion Gap 9.9 mEq/L (5-15); Aspartate Amino Transferase 39 U/L (14-36); Bilirubin,Direct 0.2 mg/dl (0.0-0.4); Bilirubin,Indirect 0.6 mg/dL (0.0-0.9); Bilirubin,Total 0.8 mg/dl (0.2-1.3); Bilirubin,Unconjugated 0.6 mg/dL (0.0-1.1); Blood Urea Nitrogen 20 mg/dl (7-17); Calcium 9.6 mg/dl (8.4-10.2); Carbon Dioxide 30 mmol/L (22.0-30.0); Chloride 102 mmol/L (98-107); Chol/HDL Ratio 3.1 (1-3.5); Cholesterol 122 mg/dl (140-200); Estimated Glomerular Filt Rate 70 ml/min (>60); GFR (African American) 84 ML/MIN (>60); Glucose 163 mg/dl (74-100); HDL Cholesterol 40 mg/dl (40-60); Potassium 3.9 mmoL/L (3.5-5.1); Sodium 138 mmol/L (136-145); Total Protein,Serum 7.1 g/dl (6.3-8.2); Triglycerides 115 mg/dl (30-150); VLDL Cholesterol 23 mg/dL (0-40)
[2024-10-25 12:15] LABS: Direct LDL Cholesterol 54.03 mg/dL (100-129)
[2024-10-25 12:19] LABS: Free T4 (Free Thyroxine) 1.29 ng/dl (0.78-2.19)
== END 2024-10-25 23:59 | disposition home or self-care (01) ==
LOC: LAB 10:59
PROVIDERS: PCP Nurse Practitioner; Visit Provider Physician Assistant
DX: E11.9 Type 2 diabetes mellitus without complications (principal); R53.83 Other fatigue; I25.10 Atherosclerotic heart disease of native coronary artery without angina pectoris; E78.2 Mixed hyperlipidemia; I10 Essential (primary) hypertension
CPT/HCPCS: 36415; 80048; 80061; 80076; 84439; 84443; 85025

== ENCOUNTER 2025-05-15 11:05 | Outpatient (CLI) | payer MEDICARE, SELFPAY ==
[2025-05-15 12:15] LABS: Blood Urea Nitrogen 25 mg/dl (7-17); Creatinine,Serum 1.00 mg/dl (0.52-1.04); Estimated Glomerular Filt Rate 54 ml/min (>60); GFR (African American) 65 ML/MIN (>60)
== END 2025-05-15 23:59 | disposition home or self-care (01) ==
LOC: LAB 11:05
PROVIDERS: PCP Nurse Practitioner; Visit Provider Nurse Practitioner
DX: R63.4 Abnormal weight loss (principal); R63.0 Anorexia; R10.9 Unspecified abdominal pain
CPT/HCPCS: 36415; 82565; 84520

== ENCOUNTER 2025-05-16 08:29 | Outpatient (CLI) | payer MEDICARE, SELFPAY ==
--- NOTE | 2025-05-16 08:34 | CT_ITS ---
PROCEDURE INFORMATION: Exam: CT Abdomen And Pelvis With Contrast Exam date and time: 05/16/2025 8:51 AM Age: 79 years old Clinical indication: Abdominal pain; Flank; Right; Additional info: Weight loss TECHNIQUE: Imaging protocol: Computed tomography of the abdomen and pelvis with contrast. Radiation optimization: All CT scans at this facility use at least one of these dose optimization techniques: automated exposure control; mA and/or kV adjustment per patient size (includes targeted exams where dose is matched to clinical indication); or iterative reconstruction. Contrast material: ISOVUE; Contrast volume: 80 ml; Contrast route: IV; COMPARISON: NM HEPATOBILIARY W PHARM 05/18/2024 11:37 AM FINDINGS: Lungs: The lungs are unremarkable. Heart: The heart is unremarkable. No cardiomegaly. No pericardial effusion. Liver: Liver is unremarkable. Gallbladder and biliary ducts: Normal. No calcified stones. No ductal dilation for age. Pancreas: Mild diffuse atrophy of the pancreas. The pancreatic duct is normal in size. Spleen: Spleen is unremarkable. Adrenal glands: The adrenal glands are unremarkable. Kidneys and ureters: The kidneys and ureters are unremarkable. Stomach and bowel: There are numerous colonic diverticula with no evidence of diverticulitis. There is a large amount of stool in the colon likely due to constipation. Appendix: The appendix is normal. Intraperitoneal space: The intraperitoneal space is unremarkable. No free air. No significant fluid collection. Vasculature: 8 mm rim calcified saccular aneurysm, right renal artery at the level of the right renal pelvis, image 5/36. The vasculature is unremarkable. No abdominal aortic aneurysm. Lymph nodes: There is mild prominence of the periportal lymph nodes measuring up to 10 mm in short axis, image 5/36. This is nonspecific. Urinary bladder: The urinary bladder is unremarkable. Reproductive: Status post hysterectomy. Bones/joints: There is a chronic appearing moderate wedge compression deformity of the L3 vertebral body. Soft tissues: There is a small fat containing umbilical hernia. The soft tissues are unremarkable. IMPRESSION: There is no acute abdominal or pelvic pathology. There is a large amount of stool in the colon likely due to constipation.
[2025-05-16] MEDS: IOPAMIDOL-370 (76%);100ML BOTTLE 80 ML IV (09:08)
== END 2025-05-16 23:59 | disposition home or self-care (01) ==
LOC: RAD 08:29
PROVIDERS: PCP Nurse Practitioner; Visit Provider Nurse Practitioner
DX: R93.3 Abnormal findings on diagnostic imaging of other parts of digestive tract (principal); R63.4 Abnormal weight loss; R63.0 Anorexia; R10.9 Unspecified abdominal pain
CPT/HCPCS: 74177; Q9967

== ENCOUNTER 2025-06-03 08:19 | Outpatient (CLI) | payer MEDICARE, SELFPAY ==
--- OUTSIDE RECORDS SUMMARY | 2025-06-03 08:27 | XMS_ITS | Data Portability ---
Author Organization [facility] [place] Address [address] [facility] [address] [place] [address] Care Team Providers Care Carry Out Clerk Name Role Phone ROD PRASAD Referring Provider NITESH ROQUE Primary Care Provider Assessment Encounter Date Assessment Date Assessment LastModified by Organization Details LastModified Time 10/14/2020 10/14/2020 Discussion was had with patient in clinic today regarding diagnosis of volar wrist ganglion cyst. I explained that the history of fluctuating size, the location, and the exam findings are most consistent with a ganglion cyst. We discussed treatment options including observation, aspiration, and surgical excision. As the mass is currently symptomatic, the patient is not interested in continuing observation at this time. I explained that aspiration has a 50-70% recurrence rate. Patient reports that it is not as bothersome having recently decreased in size, but if it becomes larger again or more bothersome over time, her inclination is to proceed with more definitive surgical excision. She will contact my office should she wish to move forward with surgery. Patient will tentatively be scheduled for left volar carpal ganglion cyst excision at her convenience should she choose to move forward with surgery. Risk and benefits of the surgical procedure were explained to the patient in clinic today, including but not limited to incomplete symptom relief, recurrence, need for additional procedures, stiffness, damage to surrounding tissues/structur es/nerves/vessel s, wound complications, and infection. Patient expressed understanding and all questions were answered to the patient's satisfaction. [email or web address] Not available 10/14/2020 14:36:04 Plan of Treatment Reminders Order Date Submit Date Provider Last Modified By Organization Details Last Modified Time Details Appointments None record ed. Lab None record ed. Referral None record ed. Procedures None record ed. Surgeries None record ed. Imaging None record ed. Medication Orders None record ed. Patient TargetsNo targets recorded. Patient InstructionsNo instructions recorded. Reason for Referral None Reported. Problems No Known Problems Medical Equipment None Reported. Allergies No known drug allergies Medications Name Sig Start Date Stop Date Status Note LastModified by Organization Details LastModified Time metformin 500 mg tablet Take 1 tablet twice a day by oral route. 10/14 completed Not Available Not Available Not Available atorvastatin 20 mg tablet Take 1 tablet every day by oral route. active Not Available Not Available No t Available amlodipine 5 mg tablet Take 1 tablet every day by oral route. active Not Available Not Available No t Available losartan 100 mg-hydrochlor othiazide 25 mg tablet Take 1 tablet every day by oral route. active Not Available Not Available No t Available metoprolol tartrate 50 mg tablet Take 1 tablet twice a day by oral route. active Not Available Not Available No t Available Flexeril active Not Available Not Avai lable Not Available Vitals Date Recorded Body height Body mass index (BMI) Body weight Provider Name and Address Organization Details Last Updated DateTime 10/14/2020 160.02 cm 31.7 kg/m2 74180.03 g Emperatriz Gutierrez [facility] 10/14/2020 14:01:57 Social History None recorded. Functional Status None recorded. Mental Status None recorded. Family History Nothing Reported. Medical History Condition Response Heart Conditions N Heart Attack (ND) N Diabetes N Bleeding Disorder N Arthritis N Blood Clot N Asthma N Blood Thinners N Sleep Apnea N High Cholesterol Y Liver Disease N Included as Review of Systems Y Hypertension Y Kidney Disease N Gynecological HistoryNo gynecological history recorded. Obstetrics History GPAL:G 0 P 0 0 0 0 Past Encounters Encounter ID Performer Location Encounter Start Date Encounter Closed Date Diagnosis/Indication Diagnosis SNOMED-CT Code Diagnosis ICD10 Code Diagnosis IMO Codes Diagnosis Note [id number] SAMIRA DAVIS MD [facility] [address] [place] [address] 10/14/2020 13:49:02 10/14/2020 15:45:48 Health Concerns Section Related Observation LastModified by Organization Detai ls LastModified Time None Recorded Concern Status LastModified by Organization Details LastModified Time None Recorded Advance Directives Directive None Recorded Payers Insurance Date Sequence Insurance Name Policy Number Policy Yepez Covered Member ID Yepez Member ID Guarantor Name 10/14/2020 1 [facility] (MEDICARE REPLACEMENT/A DVANTAGE - PPO) [id number] Sona Fraser [id number] Sona Fraser Notes Date Note Type Note Provider Name and Address Organization Details Recorded Time 10/14/2020 text/html Patient is a 74-year-old [id number] female who is retired. She presents today for evaluation of a several year history of a fluctuating left volar radial soft tissue mass. Reports that a few weeks ago it was significantly larger in size, but since that time has decreased in size. Currently not painful, but sometimes uncomfortable if resting against a firm surface. Consult requested by: Ju Prasad Primary Care Physician: Ju Prasad Hand dominance: Right Location: Left Wrist Pain level: 0 /10 Date of injury: Duration: 1 year(s) Recent Surgery: No Procedure: Date of surgery: Duration: In office procedure? No Previous upper extremity surgery? No Procedure: Approximate date of surgery: Surgeon (if known): Currently employed?: Retired Employer: Occupation: Are they currently working? No Is this injury associated with a Workers Compensation claim? No Patient arrived in: [facility] Strength: right: left: New: Patient arrives with cyst on left wrist. She states of no pain unless putting pressure on the left wrist. She states in the past couple months it has increased in size and thats why she is here. The cyst is soft to the touch. SAMIRA DAVIS MD [facility] [place], [address], [facility] 10/14/2020 14:36:14 OBGyn Episode No OBEpisode recorded.
--- OUTSIDE RECORDS SUMMARY | 2025-06-03 08:27 | XMS_ITS | Clinical Summary ---
Author Organization [facility] Address [address] [place] [address], [address] [place] [address] Care Team Providers Care Pointer Helper Name Role Phone Unavailable Primary Care Provider Unavailabl e Allergies No known active allergies Medications doxycycline (VIBRA-TABS) 100 MG tablet Take 100 mg by mouth 2 times daily. Active valsartan (DIOVAN) 80 MG tablet Take 80 mg by mouth daily. Active nebivolol (BYSTOLIC) 5 MG tablet Take 5 mg by mouth daily. Active Social History Tobacco Use Types Packs/Day Years Used Date Smoking Tobacco: Never Alcohol Use Standard Drinks/Week Comments No 0 (1 standard drink = 0.6 oz pur e alcohol) Comments No Sex and Gender Information Value Date Recorded Sex Assigned at Not on file Legal Sex Female 7:51 PM EST Gender Identity Not on file Sexual Orientation Not on file Last Filed Vital Signs Vital Sign Reading Time Taken Comments Blood Pressure 172/71 05/29/2011 7:46 PM EDT Pulse 81 05/29/2011 7:44 PM EDT Temperature 36.3 C (97.3 F) 05/29/2011 7:44 PM EDT Respiratory Rate 12 05/29/2011 7:44 PM EDT Oxygen Saturation 98% 05/29/2011 7:44 PM EDT Inhaled Oxygen Concentration - - Weight 78.5 kg (173 lb) 05/29/2011 7:44 PM EDT Height 160 cm (5' 3 ) 05/29/2011 7:44 PM EDT Body Mass Index 30.65 05/29/2011 7:44 PM EDT Plan of Treatment Not on file
--- OUTSIDE RECORDS SUMMARY | 2025-06-03 08:27 | XMS_ITS ---
Laboratory report Created on: May 09, 2025 DARINEL SON : 1945 Sex: Female Author Name PABLOGRAZYNAMARIBEL PABLO Kimi Unknown PROBLEMS Problems List Code Description E11.9 R63.4 R63.0 R10.9 RESULTS Laboratory Orders Date Order Code Test 2025-05-04 [id number] THYROID PANEL WI TH TSH 2025-05-04 [id number] VITAMIN B12 AND FOLATE 2025-05-04 [id number] CBC WITH DIFFERE NTIAL/PLATELET 2025-05-04 [id number] COMP. METABOLIC PANEL (14) Laboratory Results Date LOINC Test Value Unit Reference Range Interpre tation 2025-05-04 99900-0 TSH .849 UIU/ML 0.450-4.500 2025-05-04 3026-2 THYROXINE (T4) 12.4 UG/DL 4.5-12.0 H 2025-05-04 3050-2 T3 UPTAKE 26 % 24-39 2025-05-04 96209-6 FREE THYROXINE INDEX 3.2 1.2-4.9 2025-05-04 2132-9 VITAMIN B12 1780 PG/ML 232-1245 H 2025-05-04 2284-8 FOLATE (FOLIC ACID), SERUM >20.0 NG/ML >3.0 2025-05-04 6690-2 WBC 5.5 X10E3/UL 3.4-10.8 2025-05-04 789-8 RBC 4.77 X10E6/UL 3.77-5.28 2025-05-04 718-7 HEMOGLOBIN 15 G/DL 11.1-15.9 2025-05-04 4544-3 HEMATOCRIT 45.1 % 34.0-46.6 2025-05-04 787-2 MCV 95 FL 79-97 2025-05-04 785-6 MCH 31.4 PG 26.6-33.0 2025-05-04 786-4 MCHC 33.3 G/DL 31.5-35.7 2025-05-04 788-0 RDW 13.1 % 11.7-15.4 2025-05-04 777-3 PLATELETS 195 X10E3/UL 799-169 3990-09-27 770-8 NEUTROPHILS 63 % 2025-05-04 736-9 LYMPHS 21 % 2025-05-04 5905-5 MONOCYTES 16 % 2025-05-04 713-8 EOS 0 % 2025-05-04 706-2 BASOS 0 % 2025-05-04 751-8 NEUTROPHILS (ABSOLUTE) 3.5 X10E3/UL 1.4-7.0 2025-05-04 731-0 LYMPHS (ABSOLUTE) 1.1 X10E3/UL 0.7-3.1 2025-05-04 742-7 MONOCYTES(ABSOLUTE) .9 X10E3/UL 0.1-0.9 2025-05-04 711-2 EOS (ABSOLUTE) 0 X10E3/UL 0.0-0.4 2025-05-04 704-7 BASO (ABSOLUTE) 0 X10E3/UL 0.0-0.2 2025-05-04 01068-6 IMMATURE GRANULOCYTES 0 % 2025-05-04 54179-6 IMMATURE GRANS (ABS) 0 X10E3/UL 0.0-0.1 2025-05-04 2345-7 GLUCOSE 213 MG/DL 70-99 H 2025-05-04 3094-0 BUN 19 MG/DL 8-2025-05-04 2160-0 CREATININE 1.03 MG/DL 0.57-1.00 H 2025-05-04 70096-3 EGFR 56 ML/MIN/1.73 >59 L 2025-05-04 3097-3 BUN/CREATININE RATIO 18 08-042025-05-04 2951-2 SODIUM 137 MMOL/L 208-471 6595-09-27 2823-3 POTASSIUM 3.3 MMOL/L 3.5-5.2 L 2025-05-04 2075-0 CHLORIDE 96 MMOL/L 96-106 2025-05-04 2028-9 CARBON DIOXIDE, TOTAL 21 MMOL/L 2025-05-04 37718-6 CALCIUM 9.7 MG/DL 8.7-10.3 2025-05-04 2885-2 PROTEIN, TOTAL 7.3 G/DL 6.0-8.5 2025-05-04 1751-7 ALBUMIN 4.2 G/DL 3.8-4.8 2025-05-04 88957-2 GLOBULIN, TOTAL 3.1 G/DL 1.5-4.5 2025-05-04 1975-2 BILIRUBIN, TOTAL 2.1 MG/DL 0.0-1.2 H 2025-05-04 6768-6 ALKALINE PHOSPHATASE 302 IU/L 49-135 H 2025-05-04 1920-8 AST (SGOT) 1702 IU/L 0-40 HH 2025-05-04 1742-6 ALT (SGPT) 1834 IU/L 0-32 HH
--- OUTSIDE RECORDS SUMMARY | 2025-06-03 08:27 | XMS_ITS ---
Laboratory report Created on: May 11, 2025 DARINEL SON : 1945 Sex: Female Author Name PABLO TOWNSEND [facility] Unknown PROBLEMS Problems List Code Description E11.9 R63.4 R63.0 R10.9 RESULTS Laboratory Orders Date Order Code Test 2025-05-04 [id number] VITAMIN D, 25-HY DROXY 2025-05-04 727145 CALCITRIOL(1,25 DI-OH VIT D) Laboratory Results Date LOINC Test Value Unit Reference Range Interpre tation 2025-05-04 20903-6 VITAMIN D, 25-HYDROXY 58.4 NG/ML 30.0-10 0.0 2025-05-04 42622-9 CALCITRIOL(1,25 DI-OH VIT D) 51.5 PG/ML 24.8-81.5
--- NOTE | 2025-06-03 08:29 | US_ITS ---
FINAL REPORT CLINICAL HISTORY: ELEVATED ENZYMES FINDINGS: Sonographic images of the right upper quadrant were obtained. The pancreas is partially obscured.The liver has an unremarkable appearance.The gallbladder appears normal without evidence of gallstones.There is no evidence of biliary ductal dilatation. Right kidney unremarkable. IMPRESSION: Unremarkable right upper quadrant ultrasound. Reviewed, Interpreted and Dictated by Jarred Lucas MD Transcribed by Verena Schmitt Authenticated and . [facility]
== END 2025-06-03 23:59 | disposition home or self-care (01) ==
LOC: RAD 08:19
PROVIDERS: PCP Nurse Practitioner; Visit Provider Nurse Practitioner
DX: R74.8 Abnormal levels of other serum enzymes (principal)
CPT/HCPCS: 76705